=== PATIENT | female | born 1985 | race Hispanic/Latino ===

== ENCOUNTER 2017-09-11 18:08 | Emergency (ER) | payer SELFPAY ==
[2017-09-11] MEDS ORDERED: DEXAMETHASONE SOD PHOSPHATE 10MG/ML 1ML VIAL ONE (18:35)
[2017-09-11] MEDS ORDERED: KETOROLAC TROMETHAMINE 60 MG/2 ML VIAL ONE (18:35)
[2017-09-11] MEDS ORDERED: CYCLOBENZAPRINE HCL 10 MG TABLET ONE (18:36)
[2017-09-11 18:51] LABS: APPEARANCE,URINE Clear (CLEAR); BILIRUBIN,URINE Negative (NEGATIVE); COLOR,URINE Yellow (YELLOW); GLUCOSE, URINE (UA) Negative (NEGATIVE); KETONES,URINE Negative (NEGATIVE); LEUKOCYTE ESTERASE ,URINE Negative (NEGATIVE); NITRATE,URINE Negative (NEGATIVE); OCCULT BLOOD,URINE Negative (NEGATIVE); PROTEIN,URINE Negative (NEGATIVE); UROBILINOGEN,URINE 0.2 mg/dL (0.2-1.0)
[2017-09-11 18:52] LABS: HCG,QUAL RESULT NEGATIVE (NEGATIVE)
== END 2017-09-11 19:28 | disposition home or self-care (01) ==
LOC: EDH 18:08
DX: M54.5 Low back pain (principal); M62.830 Muscle spasm of back; Z72.0 Tobacco use
CPT/HCPCS: 72100; 81003; 81025; 96372 ×2; 99285; J1100; J1885

== ENCOUNTER 2018-08-09 11:20 | Emergency (ER) | payer SELFPAY ==
[2018-08-09] MEDS ORDERED: ACETAMINOPHEN-CODEINE 300/30MG TAB ONE (12:17)
[2018-08-09] MEDS ORDERED: CYCLOBENZAPRINE HCL 10 MG TABLET ONE (12:17)
== END 2018-08-09 12:34 | disposition home or self-care (01) ==
LOC: EDH 11:20
DX: S70.01XA Contusion of right hip, initial encounter (principal); M54.5 Low back pain; M79.7 Fibromyalgia; Z72.0 Tobacco use; W01.0XXA Fall on same level from slipping, tripping and stumbling without subsequent striking against object, initial encounter; Y93.01 Activity, walking, marching and hiking; Y92.89 Other specified places as the place of occurrence of the external cause; Y99.8 Other external cause status
CPT/HCPCS: 72100; 73502; 81025

== ENCOUNTER 2018-09-14 20:41 | Emergency (ER) | payer OTHER ==
[2018-09-14 21:24] LABS: BASOPHILS % (AUTO) 0.5 % (0.0-5.0); EOSINOPHILS % (AUTO) 1.6 % (0.0-8.0); LYMPHOCYTES % (AUTO) 29.2 % (21.0-51.0); MEAN CORPUSCULAR HEMOGLOBIN 32.1 pg (27.0-33.0); MEAN CORPUSCULAR HGB CONC 34.5 g/dL (32.0-36.0); MEAN CORPUSCULAR VOLUME 92.8 fL (79-99); MONOCYTES % (AUTO) 6.6 % (3.0-13.0); NEUTROPHILS % (AUTO) 62.1 % (40.0-77.0); PLATELET COUNT (AUTO) 284 K/uL (130-400); RED CELL DISTRIBUTION WIDTH 12.4 % (11.0-15.5); WHITE BLOOD COUNT (AUTO) 11.1 K/uL (4.8-10.8)
[2018-09-14 21:25] LABS: APPEARANCE,URINE CLOUDY (CLEAR); BILIRUBIN,URINE NEGATIVE (NEGATIVE); COLOR,URINE YELLOW (YELLOW); GLUCOSE, URINE (UA) NEGATIVE (NEGATIVE); KETONES,URINE NEGATIVE (NEGATIVE); LEUKOCYTE ESTERASE ,URINE NEGATIVE (NEGATIVE); NITRATE,URINE NEGATIVE (NEGATIVE); OCCULT BLOOD,URINE NEGATIVE (NEGATIVE); PH,URINE 8.5 (5.0-8.0); PROTEIN,URINE NEGATIVE (NEGATIVE); UROBILINOGEN,URINE 0.2 mg/dL (0.2-1.0)
[2018-09-14 21:33] LABS: AMPHET/METH SCREEN,URINE NEGATIVE (NEGATIVE); BARBITURATE SCREEN, URINE NEGATIVE (NEGATIVE); BENZODIAZEPINES SCREEN,URINE POSITIVE (NEGATIVE); CANNABINOID SCREEN,URINE POSITIVE (NEGATIVE); COCAINE SCREEN,URINE POSITIVE (NEGATIVE); OPIATE SCREEN,URINE NEGATIVE (NEGATIVE); PHENCYCLIDINE SCREEN,URINE NEGATIVE (NEGATIVE)
[2018-09-14 21:34] LABS: CREATININE 0.9 mg/dL (0.5-1.5); POTASSIUM 3.4 mmol/L (3.5-5.1)
[2018-09-14 21:37] LABS: INR 0.95 (0.85-1.15); PARTIAL THROMBOPLASTIN TIME 33.5 SEC (26.3-35.5)
[2018-09-14 21:39] LABS: ALBUMIN 3.5 g/dL (3.5-5.0); BILIRUBIN,TOTAL 0.2 mg/dL (0.2-1.0); TOTAL PROTEIN, SERUM 7.6 g/dL (6.0-8.3)
[2018-09-14 21:52] LABS: B-TYPE NATRIURETIC PEPTIDE 18 pg/mL (0-100)
[2018-09-14 21:55] LABS: BACTERIA,URINE Few /HPF (None Seen); RBC,URINE 0-1 /HPF (0-1); WBC,URINE 0-1 /HPF (0-1)
[2018-09-14 21:56] LABS: SQUAMOUS EPITHELIAL CELL,UR Few /HPF (0-2)
[2018-09-14 21:57] LABS: AMORPHOUS SEDIMENT,UR Few /LPF (None Seen)
[2018-09-15] MEDS ORDERED: ASPIRIN 325 MG TABLET ONE (00:03)
== END 2018-09-15 00:29 | disposition home or self-care (01) ==
LOC: EDH 20:41
DX: R07.1 Chest pain on breathing (principal); M79.7 Fibromyalgia; R05 Cough
CPT/HCPCS: 36415; 71045; 80053; 80305; 81001; 81025; 82550; 83880; 84484; 85025; 85610; 85730; 93005

== ENCOUNTER 2019-09-22 12:37 | Emergency (ER) | payer OTHER ==
[2019-09-22] MEDS ORDERED: LIDOCAINE HCL 1% 20 ML VIAL ONE (13:30)
== END 2019-09-22 14:50 | disposition home or self-care (01) ==
LOC: EDH 12:37
DX: L02.415 Cutaneous abscess of right lower limb (principal); Z98.890 Other specified postprocedural states; Z72.0 Tobacco use
CPT/HCPCS: 10060; 81025

== ENCOUNTER 2023-11-11 07:50 | Emergency (ER) | payer OTHER ==
[~2023-11-11] VITALS: Ht 162.6 cm; Wt 72.6 kg
[2023-11-11 08:11] LABS: APPEARANCE,URINE CLEAR (CLEAR); BILIRUBIN,URINE NEGATIVE (NEGATIVE); COLOR,URINE COLORLESS (YELLOW); GLUCOSE, URINE (UA) NEGATIVE (NEGATIVE); KETONES,URINE NEGATIVE (NEGATIVE); LEUKOCYTE ESTERASE ,URINE NEGATIVE Leu/uL (NEGATIVE); NITRATE,URINE NEGATIVE (NEGATIVE); PH,URINE 5.5 (5.0-8.0); PROTEIN,URINE NEGATIVE (NEGATIVE); UROBILINOGEN,URINE 0.2 mg/dL (0.2-1.0)
[2023-11-11 08:17] LABS: ADD UA MICROSCOPIC YES
[2023-11-11 08:18] LABS: RBC,URINE 0-1 /HPF (0-1); SQUAMOUS EPITHELIAL CELL,UR MOD /HPF (0-2); WBC,URINE 0-1 /HPF (0-1)
[2023-11-11 08:19] LABS: AMPHET/METH SCREEN,URINE NEGATIVE (NEGATIVE); BARBITURATE SCREEN, URINE NEGATIVE (NEGATIVE); BENZODIAZEPINES SCREEN,URINE NEGATIVE (NEGATIVE); CANNABINOID SCREEN,URINE POSITIVE (NEGATIVE); COCAINE SCREEN,URINE POSITIVE (NEGATIVE); OPIATE SCREEN,URINE NEGATIVE (NEGATIVE); PHENCYCLIDINE SCREEN,URINE NEGATIVE (NEGATIVE)
[2023-11-11 08:20] LABS: HEMATOCRIT 40.6 % (36-48); MEAN CORPUSCULAR HEMOGLOBIN 32.4 pg (27.0-33.0); MEAN CORPUSCULAR HGB CONC 35.2 g/dL (32.0-36.0); MEAN CORPUSCULAR VOLUME 92.1 fL (79-99); RED BLOOD CELL COUNT(AUTO) 4.41 MIL/uL (4.00-5.50); RED CELL DISTRIBUTION WIDTH 12.6 % (11.0-15.5); WHITE BLOOD COUNT (AUTO) 10.3 K/uL (4.8-10.8)
[2023-11-11] MEDS: THIAMINE HCL 100 MG/ML 2ML VIAL IVP ONE (08:31)
[2023-11-11] MEDS: LACTATED RINGERS 1000ML 1,641 ML IV ONE (08:33)
[2023-11-11 08:41] LABS: CARBON DIOXIDE 22 mmol/L (21-32); CHLORIDE 109 mmol/L (101-111); CREATININE 0.6 mg/dL (0.5-1.0); GLOMERULAR FILTR. RATE CALC 119 mL/min (>90); GLUCOSE,RANDOM 115 mg/dL (70-105); POTASSIUM 3.5 mmol/L (3.5-5.1); SODIUM SERUM 143 mmol/L (136-145); UREA NITROGEN, BLOOD 6 mg/dL (7-18)
[2023-11-11 08:45] LABS: ALANINE AMINOTRANSFERASE 61 U/L (12-78); ALCOHOL, BLOOD 236 mg/dL (0-10); ASPARTATE AMINOTRANSFERASE 39 U/L (10-37); BILIRUBIN,TOTAL 0.3 mg/dL (0.2-1.0); SALICYLATE 4.5 mg/dL (2.8-20.0); TOTAL PROTEIN, SERUM 7.7 g/dL (6.0-8.3)
[2023-11-11 08:52] LABS: ACETAMINOPHEN < 1 mcg/mL (10-30)
[2023-11-11 15:07] VITALS: BP 119/61
[2023-11-11 21:02] VITALS: PULSE 60; RESP 18; O2SAT 99
== END 2023-11-11 21:12 | disposition home or self-care (01) ==
LOC: EDH 07:50
DX: R45.851 Suicidal ideations (principal); F12.10 Cannabis abuse, uncomplicated; F10.129 Alcohol abuse with intoxication, unspecified; F14.10 Cocaine abuse, uncomplicated; F32.A Depression, unspecified; Z98.890 Other specified postprocedural states; Z79.899 Other long term (current) drug therapy
CPT/HCPCS: 99285; 96374; 96361; 80053; 80305; 84703; 85027; 36415; 81001; G0481; J7120; J3411